=== PATIENT | female | born 1955 | race Caucasian/White ===

== ENCOUNTER 2016-12-14 12:58 | Emergency (ER) | payer BC ==
[2016-12-14 14:51] LABS: #Basophils 0.1 thou/uL (0.0-0.2); #Eosinphils 0.1 thou/uL (0.0-0.7); #Lymphocytes 3.2 thou/uL (1.20-3.40); #Monocytes 0.6 thou/uL (0.11-0.59); #Neutrophils 5.3 thou/uL (1.40-6.50); %Basophils 0.8 % (0.0-1.0); %Eosinophils 1.2 % (0.0-10.0); %Lymphocytes 34.4 % (21.0-51.0); %Monocytes 6.6 % (0.0-10.0); %Neutrophils 57.1 % (42.0-75.0); Hemoglobin 12.4 g/dL (12.0-16.0); Mean Corpuscular HGB CONC 31.5 g/dL (32.0-36.0); Mean Corpuscular Hemoglobin 29.5 pg (27.0-31.0); Mean Corpuscular Volume 93.5 fl (81.0-99.0); Mean Platelet Volume 6.2 fL (7.4-10.4); Platelet Count 290 thou/uL (130-400); RBC Distribution Width 13.2 % (11.5-14.5); Red Blood Cell (RBC) Count 4.22 mill/uL (4.20-5.40); White Blood Cell (WBC) Count 9.3 thou/uL (4.8-10.8)
[2016-12-14 15:00] LABS: PTT 24.5 SEC (22.9-36.1)
[2016-12-14 15:10] LABS: ALT (SGPT) 20 U/L (8-55); AST (SGOT) 13 U/L (5-34); Albumin 3.7 g/dL (3.4-4.8); Alkaline Phosphatase 75 U/L (40-150); Anion Gap 18 mmol/L (10-20); BUN (Urea Nitrogen) 18 mg/dL (9.8-20.1); Bilirubin, Total 0.4 mg/dL (0.2-1.2); CK (CPK) 79 U/L (29-168); Calc. Creatinine Clearance 0 mL/min (70-130); Calcium 9.1 mg/dL (7.8-10.44); Carbon Dioxide 23 mmol/L (23-31); Chloride 105 mmol/L (98-107); Estimated GFR-MDRD 90; Globulin 3.1 g/dL (2.4-3.5); Glucose 100 mg/dL (80-115); Potassium 3.9 mmol/L (3.5-5.1); Protein, Total 6.8 g/dL (6.0-8.3); Sodium 142 mmol/L (136-145)
[2016-12-14 15:14] LABS: CKMB 2.2 ng/mL (0-6.6)
--- NOTE | 2016-12-14 15:17 | RAD ---
RADIOGRAPH LEFT SHOULDER THREE VIEWS: HISTORY: A 61-year-old female with left arm hypesthesia. FINDINGS: There is no fracture or dislocation. No high-grade degenerative changes of the glenohumeral joint. Degenerative changes at the AC joint are mild. No destructive osseous lesion. No soft tissue calc ifications. IMPRESSION: 1. Mild osteoarthrosis of the acromioclavicular joint. 2. Otherwise negative. POS: DARRICK
--- NOTE | 2016-12-14 15:25 | RAD ---
RADIOGRAPH CHEST 1 VIEW: HISTORY: A 61-year-old female with left arm hypesthesia. FINDINGS: There are no air space densities, pulmonary edema, pneumothorax, or cardiomegaly. The lateral costo phrenic angles are sharp. IMPRESSION: No acute cardiopulmonary findings. elena [] POS: DARRICK
--- NOTE | 2016-12-14 15:40 | RAD ---
CERVICAL SPINE THREE VIEWS HISTORY: A 61-year-old female with left arm numbness. FINDINGS: C7-T1 is partially obscured on the lateral view, and the odontoid and C1 are partially obscured on t he AP open-mouth view. There is significant multilevel disk osteophytosis with marked anterior hype rtrophic osteophytes at C5-C6 and C6-C7. Significant facet arthrosis. No prevertebral soft tissue swelling. IMPRESSION: 1. Extensive spondylosis. 2. No acute fracture or dislocation involving the visualized cervical spine. Consider non-emergent follow-up MRI, given potential radicular symptoms. POS: DARRICK
[2016-12-14 15:53] LABS: Troponin I Less than 0.010 ng/mL (< 0.028)
--- NOTE | 2016-12-14 15:54 | CT ---
EXAM: NONCONTRAST HEAD CT HISTORY: Left arm numbness. COMPARISON: None. TECHNIQUE: Noncontrast head CT is performed from skull base to skull vertex. FINDINGS: No parenchymal hemorrhage. No extraaxial hematoma. No midline shift. Basilar cisterns are patent. Brain volume is age-appropriate. Cortical granger-white matter differentiation is preserved. Ventricles and sulci are patent and symmetric. Calvarium is intact. Adequate aeration of the sinuses and mastoid air cells. Note is made of right -sided high-riding jugular vault, without jugular dehiscence. IMPRESSION: No acute intracranial process. Further evaluation with brain MRI if clinically warranted. POS: DARRICK
== END 2016-12-14 16:17 | disposition home or self-care (01) ==
LOC: MADERS 12:58
DX: M54.12 Radiculopathy, cervical region (principal); E78.5 Hyperlipidemia, unspecified; I10 Essential (primary) hypertension; M19.90 Unspecified osteoarthritis, unspecified site; Z79.899 Other long term (current) drug therapy
CPT/HCPCS: 70450; 71010; 72040; 80053; 82550; 82553; 83880; 84443; 84484; 85025; 85610; 85730; 93005; 94760